=== PATIENT | female | born 1935 | race Caucasian/White ===

== ENCOUNTER 2019-12-20 12:12 | Outpatient (CLI) | payer MEDICARE, SELFPAY ==
--- NOTE | 2019-12-20 12:39 | ECHO_ITS ---
Patient Info Name: Amy Borden Age: 84 years : 1935 Gender: Female Ht: 65 in Wt: 146 lbs BSA: 1.75 m2 HR: 94 bpm BP: 142 / 72 mmHg Heart Rhythm: Sinus Rhythm Technical Quality: Fair Exam Date: 12/20/2019 11:54 AM Exam Location: [facility], [place] Patient Status: Outpatient Admit Date: 12/20/2019 Staff Ordering Physician: Alfredo Omer DO Rope Tier: Luz Salomon RDCS Attending Provider: Alfredo Omer DO Referring Physician: Kan SANCHEZ; Exam Type: CA echo doppler color flow Study Info Indications I42.1 - Obstructive hypertrophic cardiomyopathy Complete two-dimensional, color flow and Doppler transthoracic echocardiogram is performed. Strain analysis performed. History/Risk Factors Hypertension: No Dyslipidemia: Yes Congenital Heart Disease (CHD): No Peripheral Arterial Disease (PAD): No Myocardial Infarction (IA): No Chronic Lung Disease: No Obesity: No Renal Disease: No Coronary Artery Disease (CAD) Yes Congestive Heart Failure (CHF): No Cardiomyopathy/LV Systolic Dysfunction: No Diabetes Mellitus: No COPD: No Tobacco Use: Never Cerebrovascular Disease: No Family History: Coronary Artery Disease Deep Vein Thrombosis (DVT): None Dialysis: None Frailty Scale (CSHA): 2: Well Cardiac Arrest: No Prior Interventions Pacemaker: Yes PCI: No CABG: No Valve Surgery: No ICD: No PV Intervention: None Heart Transplant: No Summary 1. Left ventricular chamber dimension is normal. 2. Left ventricular systolic function is normal, estimated at 55-60%. 3. The left ventricular diastolic function is grade I diastolic dysfunction. 4. There is moderate asymmetric septal increased left ventricular wall thickness. This is suggestive of hypertrophic cardiomyopathy. No significant gradient in left ventricular outflow tract. 5. E/e' 18 is elevated. 6. Global longitudinal strain is abnormal at -12.8%. 7. Linear artifact in right ventricle suggestive of catheter(s), pacemaker lead(s), or ICD lead(s). 8. Left atrial chamber dimension is moderately enlarged. 9. Linear artifact in the right atrium suggestive of catheter(s), pacemaker lead(s), or ICD lead(s). 10. There is mild aortic valve sclerosis. 11. There is mild to moderate aortic valve regurgitation. 12. There is moderate mitral valve regurgitation. 13. The mitral valve has severely calcified posterior annulus. There is mobile calcified mass attached to severely calcified posterior annulus, probably an extension of calcification. 14. There is mild tricuspid valve regurgitation. 15. No pulmonary hypertension, estimated pulmonary arterial systolic pressure is 22 mmHg. 16. The aortic root size at the sinus of Valsalva is borderline dilated at 4.0 cm. Left Ventricle There is moderate asymmetric septal increased left ventricular wall thickness. This is suggestive of hypertrophic cardiomyopathy. No significant gradient in left ventricular outflow tract. E/e' 18 is elevated. Global longitudinal strain is abnormal at -12.8%. Left ventricular chamber dimension is normal. Left ventricular systolic function is normal, estimated at 55-60%. The left ventricular diastolic function is grade I diastolic dysfunction. Right Ventricle Linear artifact in right ventricle suggestive of catheter(s), pacemaker lead(s), or ICD lead(s). Right ventricular chamber dimension is normal. Right ventricular systolic function is normal. Le
== END 2019-12-20 12:13 | disposition home or self-care (01) ==
PROVIDERS: PCP Internal Medicine; Visit Provider Internal Medicine Cardiovascular Disease
DX: I42.1 Obstructive hypertrophic cardiomyopathy (principal)
CPT/HCPCS: 93306

== ENCOUNTER 2020-11-30 08:59 | Outpatient (NON) | payer MEDICARE, SELFPAY ==
[2020-11-30 09:12] LABS: Hematocrit 40.9 % (35.0-42.0); Hemoglobin 13.6 g/dL (11.7-13.8); Mean Corpuscular HGB Conc 33.3 g/dL (32.0-36.0); Mean Corpuscular Volume 90.1 fL (78.0-102.0); Mean Platelet Volume 10.4 fl (9.2-11.8); Platelet Count Result 234 K/mm3 (150-420); Red Blood Count 4.54 M/mm3 (4.20-5.40); White Blood Count 6.4 K/mm3 (4.8-10.8)
[2020-11-30 09:33] LABS: Alanine Aminotransferase 11 U/L (14-59); Albumin Level 3.9 g/dL (3.4-5.0); Alkaline Phosphatase 89 U/L (46-116); Anion Gap 10 mmol/L (8-16); Aspartate Amino Transferase 10 U/L (15-37); Bilirubin,Total 0.3 mg/dL (0.00-1.00); Blood Urea Nitrogen 13 mg/dL (7-18); Calcium 9.6 mg/dL (8.5-10.1); Carbon Dioxide 28 mmol/L (21-32); Chloride 103 mmol/L (98-108); Estimated Glomerular Filt Rate 42; Glucose 102 mg/dL (70-99); Magnesium 1.6 mg/dL (1.8-2.4); Osmolality Calculated 292 mOsm/kg (285-295); Phosphorus 3.6 mg/dL (2.6-4.7); Sodium 141 mmol/L (136-145); Total Protein 7.3 g/dL (6.4-8.2)
[2020-11-30 09:38] LABS: Band Neutrophils Percent 4 % (0-6); Basophils Percent Manual 0 % (0-1); Eosinophils Percent Manual 0 % (1-6); Lymphocytes Absolute Manual 1.66 K/mm3 (1.1-4.5); Lymphocytes Percent Manual 26 % (18-44); Metamyelocytes Percent 4 %; Monocytes Absolute Manual 0.38 K/mm3 (0.1-0.90); Monocytes Percent Manual 6 % (3-9); Myelocytes Percent 2 %; Neutrophils Absolute Manual 3.96 K/mm3 (1.7-7.2); Neutrophils Percent Manual 58 % (46-73); Nucleated Red Blood Cells 1 %; Total Cells Counted 100
[2020-11-30 09:39] LABS: Platelet Estimate Adequate (Adequate)
[2020-12-03 00:16] LABS: Theophylline 18.8 mg/L (10.0-20.0)
== END 2020-11-30 09:00 ==
LOC: CHSLAB 09:00
PROVIDERS: Visit Provider Internal Medicine
DX: R19.7 Diarrhea, unspecified (principal); Z79.899 Other long term (current) drug therapy
CPT/HCPCS: 36415; 80053; 80198; 83735; 84100; 85025; 87045; 87046; 87177; 87209; 87324; 87427

== ENCOUNTER 2020-12-28 10:58 | Outpatient (NON) | payer MEDICARE, SELFPAY ==
[2020-12-28 12:05] LABS: Cholesterol 141 mg/dL (0-200); HDL Direct 46 mg/dL (40-60); LDL Cholesterol Calculated 79 mg/dL (<130); Triglycerides 81 mg/dL (0-150)
== END 2020-12-28 10:59 ==
LOC: CHSLAB 10:59
PROVIDERS: Visit Provider Internal Medicine Cardiovascular Disease
DX: E78.5 Hyperlipidemia, unspecified (principal)
CPT/HCPCS: 36415; 80061

== ENCOUNTER 2021-05-15 12:12 | Outpatient (CLI) | payer MEDICARE, MEDICAID, SELFPAY ==
--- NOTE | ~2021-05-15 | CT_ITS ---
EXAMINATION: CT brain wo con INDICATION: Diplopia, cognitive impairment COMPARISON: 05/19/2013 TECHNIQUE: Standard unenhanced head CT. The dose-length product (DLP) was 605.33 mGy-cm. The mA was a djusted according to patient size. Iterative reconstruction technique was employed. FINDINGS: There is no acute intraparenchymal hemorrhage. No evidence of mass lesion. No evidence of a cute infarction. There is mild periventricular and subcortical hypodensity probably related to small vessel ischemic disease. There is mild prominence of the sulci and ventricles related to cerebral atr ophy. Intracranial calcified cerebral atherosclerosis is noted. There are no extra-axial collections. There is no mass effect or midline shift. Changes in the globes are likely from ocular lens surgery. There is mild mucosal thickening of the paranasal sinuses. IMPRESSION: 1. No acute intracranial abnormality. 2. Age related findings. Reviewed, dictated and finalized at location A.
--- NOTE | ~2021-05-15 | XR_ITS ---
EXAMINATION: XR chest 2V DATE: 05/15/2021 12:42 INDICATION: Chest pain TECHNIQUE: PA and lateral views of the chest are obtained. COMPARISON: 02/09/2019 FINDINGS: There is chronic elevation of the left hemidiaphragm. The lungs are free of acute opacities . There is no pleural effusion or pneumothorax. The cardiomediastinal silhouette is normal. There is moderate thoracic spondylosis. A dual-lead cardiac pacemaker of the right chest wall ends with leads in expected locations. IMPRESSION: 1. No acute cardiopulmonary abnormality. Reviewed, dictated and finalized at location A.
[2021-05-15 12:37] LABS: Hemoglobin 13.2 g/dL (11.7-13.8); White Blood Count 5.6 K/mm3 (4.8-10.8)
[2021-05-15 12:38] LABS: Hematocrit 40.8 % (35.0-42.0); Immature Granulocyte Absolute 0.03 K/mm3 (0.00-0.00); Immature Granulocyte Percent A 0.5 % (0.0-0.0); Lymphocytes Absolute Auto 1.63 K/mm3 (1.10-4.50); Lymphocytes Percent Auto 29.2 % (18.0-42.0); Mean Corpuscular HGB Conc 32.4 g/dL (32.0-36.0); Mean Corpuscular Volume 92.7 fL (78.0-102.0); Mean Platelet Volume 9.5 fl (9.2-11.8); Monocytes Absolute Auto 0.58 K/mm3 (0.10-0.90); Monocytes Percent Auto 10.4 % (2.0-11.0); Neutrophils Absolute Auto 3.3 K/mm3 (1.7-7.2); Neutrophils Percent Auto 59.9 % (50.0-70.0); Platelet Count Result 300 K/mm3 (150-420); Red Cell Distribution Width 12.7 % (11.6-14.4)
--- NOTE | 2021-05-15 13:10 | ECG_ITS ---
Measurements Intervals [place] Rate: 70 P: -14 CA: 154 QRS: -59 QRSD: 173 T: 101 QT: 449 QTc: 487 Interpretive Statements ELECTRONIC ATRIAL PACEMAKER WITH INHIBITION ELECTRONIC VENTRICULAR PACEMAKER NO FURTHER INTERPRETATION IS POSSIBLE ATYPICAL ECG Electronically Signed On 05-15-2021 13:14:43 CDT by Alfredo Omer D.O.
[2021-05-15 13:13] LABS: Add Urine Microscopic? YES; Appearance Urine Clear (Clear); Bilirubin Urine Negative (Negative); Blood Urine Negative (Negative); Color Urine Light Yellow (Yellow); Glucose Urine UA Negative (Negative); Ketones Urine Negative (Negative); Leukocyte Esterase Ur 1+ (Negative); Nitrate Urine Negative (Negative); Protein Urine Negative (Negative); Specific Grav Ur 1.015 (1.010-1.020); Urobilinogen Urine 0.2 mg/dL (0.2-1.0); pH Urine 7.5 (5.0-8.0)
[2021-05-15 13:18] LABS: Bacteria Urine Trace /hpf; RBC Urine None seen /hpf (0-2); Squamous Epithelial Cell Urine Rare /hpf (Few); WBC Urine 0-3 /hpf (0-3)
[2021-05-15 13:42] LABS: Alanine Aminotransferase 22 U/L (14-59); Albumin Level 4.4 g/dL (3.4-5.0); Alkaline Phosphatase 76 U/L (46-116); Anion Gap 10 mmol/L (8-16); Aspartate Amino Transferase 17 U/L (15-37); Bilirubin,Total 0.4 mg/dL (0.00-1.00); Blood Urea Nitrogen 11 mg/dL (7-18); Calcium 9.7 mg/dL (8.5-10.1); Carbon Dioxide 28 mmol/L (21-32); Chloride 104 mmol/L (98-108); Estimated Glomerular Filt Rate 56; Glucose 98 mg/dL (70-99); Osmolality Calculated 293 mOsm/kg (285-295); Potassium 4.8 mmol/L (3.5-5.1); Sodium 142 mmol/L (136-145); Thyroid Stimulating Hormone 2.36 uIU/mL (0.36-3.74); Total Protein 7.8 g/dL (6.4-8.2)
[2021-05-15 13:43] LABS: CRP < 0.5 mg/dL (0.0-0.9)
[2021-05-18 18:12] LABS: Methylmalonic Acid 287 nmol/L (87-318)
== END 2021-05-15 12:13 | disposition home or self-care (01) ==
LOC: CHSCARD 12:16
PROVIDERS: PCP Internal Medicine; Visit Provider Internal Medicine
DX: E53.8 Deficiency of other specified B group vitamins (principal); J44.9 Chronic obstructive pulmonary disease, unspecified
CPT/HCPCS: 36415; 70450; 71046; 80053; 81001; 83921; 84443; 85025; 86140; 87086; 87088; 93005

== ENCOUNTER 2021-07-30 15:22 | Outpatient (CLI) | payer OTHER, SELFPAY ==
--- NOTE | 2021-07-30 15:25 | ECG_ITS ---
Measurements Intervals [place] Rate: 76 P: 22 GA: 188 QRS: -67 QRSD: 174 T: 98 QT: 442 QTc: 498 Interpretive Statements ATRIAL SENSE- ELECTRONIC VENTRICULAR PACEMAKER BASELINE ARTIFACT- I, II, III, AVF NO FURTHER INTERPRETATION IS POSSIBLE ATYPICAL ECG Electronically Signed On 07-30-2021 15:53:30 CDT by Alfredo Omer D.O.
== END 2021-07-30 15:23 | disposition home or self-care (01) ==
PROVIDERS: PCP Internal Medicine; Visit Provider Internal Medicine Cardiovascular Disease
DX: R06.00 Dyspnea, unspecified (principal)
CPT/HCPCS: 93005

== ENCOUNTER 2021-08-23 13:20 | Outpatient (CLI) | payer MEDICARE, SELFPAY ==
--- NOTE | 2021-08-23 13:28 | ECHO_ITS ---
Patient Info Name: Amy Borden Age: 86 years : 1935 Gender: Female Ht: 66 in Wt: 155 lbs BSA: 1.82 m2 HR: 61 bpm BP: 150 / 73 mmHg Exam Date: 08/23/2021 2:41 PM Exam Location: [facility], [place] Patient Status: Outpatient Admit Date: 08/23/2021 Staff Ordering Physician: Alfredo Omer DO Hvac Engineer: Will Brown RDCS, RT Attending Provider: Alfredo Omer DO Referring Physician: Kan SANCHEZ; Exam Type: CA echo doppler color flow Study Info Indications I50.9 - Heart failure, unspecified Complete two-dimensional, color flow and Doppler transthoracic echocardiogram is performed. History/Risk Factors Hypertension: No Dyslipidemia: Yes Congenital Heart Disease (CHD): No Peripheral Arterial Disease (PAD): No Myocardial Infarction (MS): No Chronic Lung Disease: No Obesity: No Renal Disease: No Coronary Artery Disease (CAD) Yes Congestive Heart Failure (CHF): No Cardiomyopathy/LV Systolic Dysfunction: No Diabetes Mellitus: No COPD: No Tobacco Use: Never Cerebrovascular Disease: No Family History: Coronary Artery Disease Deep Vein Thrombosis (DVT): None Dialysis: None Frailty Scale (CSHA): 2: Well Cardiac Arrest: No Prior Interventions Pacemaker: Yes PCI: No CABG: No Valve Surgery: No ICD: No PV Intervention: None Heart Transplant: No Summary 1. Complete two-dimensional, color flow and Doppler transthoracic echocardiogram is performed. 2. Left ventricular chamber dimension is normal. 3. There is severe asymmetric septal increased left ventricular wall thickness with 2.6 cm septal thickness. No LVOT obstruction. 4. Left ventricular systolic function is normal, estimated at 55-60%. 5. The left ventricular diastolic function is grade I diastolic dysfunction. 6. E/e' 20 is elevated. 7. Left atrial chamber dimension is moderately enlarged. 8. There is mild aortic valve sclerosis. 9. There is trace aortic valve regurgitation. 10. The mitral valve has severely calcified posterior annulus. 11. There is mild to moderate mitral valve regurgitation. 12. No pulmonary hypertension, estimated pulmonary arterial systolic pressure is 20 mmHg. Left Ventricle E/e' 20 is elevated. There is severe asymmetric septal increased left ventricular wall thickness with 2.6 cm septal thickness. No LVOT obstruction. Left ventricular chamber dimension is normal. Left ventricular systolic function is normal, estimated at 55-60%. The left ventricular diastolic function is grade I diastolic dysfunction. Right Ventricle Right ventricular systolic function is normal and with normal TAPSE 2.1 cm. Right ventricular chamber dimension is normal. Left Atria Left atrial chamber dimension is moderately enlarged. Right Atria Right atrial chamber dimension is normal. Aortic Valve The aortic valve is not well visualized. Cannot determine number of aortic valve leaflets. There is mild aortic valve sclerosis. There is no aortic valve stenosis. There is trace aortic valve regurgitation. Pulmonic Valve There is no pulmonic regurgitation. Mitral Valve The mitral valve has severely calcified posterior annulus. There is no mitral valve stenosis. There is mild to moderate mitral valve regurgitation. Tricuspid Valve There is no tricuspid valve regurgitation. No pulmonary hypertension, estimated pulmonary arterial systolic pressure is 20 mmHg. Pericard
== END 2021-08-23 13:21 | disposition home or self-care (01) ==
LOC: CHSIMG 13:25
PROVIDERS: PCP Internal Medicine; Visit Provider Internal Medicine Cardiovascular Disease
DX: I42.1 Obstructive hypertrophic cardiomyopathy (principal)
CPT/HCPCS: 93306